=== PATIENT | female | born 1955 | race Hispanic/Latino ===

== ENCOUNTER 2020-10-03 12:27 | Emergency (ER) | payer OTHER, SELFPAY ==
--- OUTSIDE RECORDS SUMMARY | 2020-10-03 12:31 | XMS REPORT | Continuity of Care Document ---
:1955 Author Organization [facility] t Address [address] [place] [address] Care Team Providers Name Role Phone Tucker Primary Care Physician SHAY Attending Clinician Unavailable Shay ROSA Attending Clinician Clair ROSA S Attending Clinician Marilee Ozuna DO Attending Clinician Only, Test Attending Clinician Unavailable Soraya ROSA Attending Clinician Lilly Bates RN Attending Clinician Unavailable Epic, Transmittal User Attending Clinician Unavailable Talia Vasquez RN Attending Clinician Unavailable Payers Payer Name Policy Policy Number Effective Expiration Source Type Date Date [facility] [id number] 2020 [facility] [id number] 00:00:00 UNSCREENED2020- [phone] [address] [place] [address] [facility] [id number] 2018 Un iversity of [employer] 00:00:00 [facility] [id number], [place] [address] [id number] 2019 [employer] 00:00:00 Advance Directives Directive Decision Effective Termination Comments Source Date Date Healthcare Agents on N/A Univ ersity FileNameRelationshipHealthcare [facility] Agent Medical RelationshipCommunicationVeronica Branch [facility] Care [phone] (Home)Presakilsusan Funkana rosajonesSumma Health Care [phone] (Home)Jennifer VenturaSumma Health Care [phone] (Home) Problems Condition Condition Condition Status Onset Resolution Last Treating Co mments Source Name Details Category Date Date Treatment Clinician Date Ductal Ductal Disease Active Overview: Univer s carcinoma carcinoma 08 Added ity of in situ in situ 00:00: automatic [place] (DCIS) of (DCIS) of 00 ally from M edical left left request Branch breast breast for surgery [id number] Pre-diabet Pre-diabet Disease Active 2017-03 H arris es es 04-13 Health 00:00: 00 Anxiety Anxiety Disease Active 2017-03 [place] 04-13 Health 00:00: 00 Other Other Disease Active 2017-03 [place] hemorrhoid hemorrhoid 04-13 He alth s s 00:00: 00 Seasonal Seasonal Disease Active 2017-03 Harri s allergies allergies 04-13 Heal th 00:00: 00 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 [place] (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 00:00: elial elial 00 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 Class 2 Class 2 Disease Active 2017-03 [place] obesity in obesity in 04-13 He alth adult adult 00:00: 00 Bilateral Bilateral Disease Active 2017-03 [place] ris primary primary 04-13 Health osteoarthr osteoarthr 00:00: itis of itis of 00 knee knee Essential Essential Disease Active 2017-03 [place] ris hypertensi hypertensi 04-13 He alth on on 00:00: 00 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 UTI UTI Disease Active Univers symptoms symptoms 3-30 ity of 00:00: [place] [facility] Morbid Morbid Disease Active Univers obesity obesity 8-20 ity of 00:00: [place] 00 [facility] HTN HTN Disease Active Univers (hypertens (hypertens it y of ion) ion) [facility] Generalize Generalize Disease Active U nivers d anxiety d anxiety ity of disorder disorder [facility] Well woman Well woman Disease Resolve 2019-04-22 2019-04-23 Univers exam exam d 4-03 00:00:00 04:06:26 ity of 00:00: [place] [facility] H/O tubal H/O tubal Disease Resolve [id number] 2019-04-23 Univers ligation ligation d 0-10 00:00:00 04:06:12 it y of 00:00: [place] [facility] Contracept Contracept Disease Resolve 2019-04-22 2019-04-23 Univers serjio serjio d 8-20 00:00:00 04:06:17 ity of management management [place] 00 [facility] H/O total H/O total Disease Resolve 2019-04-22 2019-04-23 Univers hysterecto hysterecto d 8- 00:00:00 04:06:09 ity of my my 00:00: [place] 00 [facility] ASCUS with ASCUS with Disease Resolve 2017-07-20 2017-07-20 Univers positive positive d 5-11 00:00:00 17:19:15 it y of high risk high risk 00:00: [place] human human 00 Medical papillomav papillomav Br anch irus of irus of vagina vagina Cervical Cervical Disease Resolve 2017-07-20 2017-07-20 Univers high risk high risk d 1-17 00:00:00 17:19:21 ity of human human 00:00: [place] papillomav papillomav 00 Me dical irus (HPV) irus (HPV) Br anch DNA test DNA test positive positive Backache Backache Disease Resolve 2016-06-19 2016-06-19 Univers d 8-20 00:00:00 16:26:45 ity of 00:00: [place] 00 Medical Branch History of History of Disease Resolve 2015-07-09 2015-07-10 Univers hysterecto hysterecto d 07-08 00:00:00 00:26:52 ity of my my 00:00: [place] 00 Medical Branch Essential Essential Disease Resolve 2014-11-05 2014-12-19 Univers hypertensi hypertensi d 11-05 00:00:00 00:38:47 ity of on on 00:00: [place] 00 Medical Branch Urinary Urinary Disease Resolve 2014-11-05 2014-11-06 Univers tract tract d 09-02 00:00:00 03:51:30 ity of infection, infection, 00:[place] site not site not 00 Medica l specified specified Bran ch BV BV Disease Resolve 2014-11-05 2014-11-06 Univers (bacterial (bacterial d 09-02 00:00:00 03:51:34 ity of vaginosis) vaginosis[place] H/O: H/O: Disease Resolve 2014-11-05 2014-11-06 Univers hysterecto hysterecto d 07-08 00:00:00 03:52:46 ity of my my 00:00: [place] 00 Medical Branch Papanicola Papanicola Disease Resolve 2014-11-05 2014-11-06 Univers ou smear ou smear d 07-08 00:00:00 03:51:37 it y of of vagina of vagina 00:00: [place] with high with high 00 Medi myriam 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) (HGSIL) Dysuria Dysuria Disease Resolve 2014-11-05 2014-11-06 Univers d 04-04 00:00:00 03:51:33 ity of 00:00: [place] 00 Medical Branch Hx of Hx of Disease Resolve 2014-11-05 2014-11-06 Univers bilateral bilateral d 04-04 00:00:00 03:51:48 ity of oophorecto oophorecto [place] 00 Medical Branch Vaginal Vaginal Disease Resolve 2014-11-05 2014-11-06 Univers dryness dryness d 04-04 00:00:00 03:51:27 ity of 00:00: [place] 00 Medical Branch Encounter Encounter Disease Resolve 2014-07-08 2014-12-19 Univers for for d 04-04 00:00:00 00:03:47 ity of routine routine 00:00: [place] gynecologi gynecologi 00 Me dical myriam myriam Branch examinatio examinatio n n H/O: H/O: Disease Resolve 2013-05-28 2013-05-28 Univers hysterecto hysterecto d 04-04 00:00:00 20:51:23 ity of my my 00:00: [place] 00 Medical Branch HSIL (high HSIL (high Disease Active 2013-04-04 2013-04-04 Overview: Univers grade grade 8- 00:00:00 18:13:13 Hysterect ity of squamous squamous 00:00: toño for [place] intraepith intraepith 00 BRONSON 3Has Medical elial elict long Branch lesion) on lesion) on history Pap smear Pap smear of of cervix of cervix abnormal paps since then- Has been very compliant with follow up and vaginal biopsies. 06/19/2017- HGSIL07/20- colpo FLANK PAIN FLANK PAIN Disease Resolve 2013-04-04 2013-04-04 Univers d 11-03 00:00:00 18:13:15 ity of 00:00: [place] 00 Medical Branch Allergies, Adverse Reactions, Alerts Allergy Allergy Status Severity Reaction(s) Onset Inactive Treating Comm ents Source Name Type Date Date Clinician Xochitl Sanensi Active Anxiety Unive rs e ty to 3-05 ity of adverse 00:00: [place] reaction 00 Medical s Branch Aspirin Propensi Active [place] ty to 9-10 Health adverse 00:00: reaction 00 s to drug Hydrocor Propensi Active [place] tisone ty to 9-10 Health adverse 00:00: reaction 00 s to drug Aspirin Propensi Active Other - See 2010-03 Pt states Univers ty to comments - her heart ity o f adverse 00:00: races [place] reaction 00 fast.Rapi Medic al s d Branch heartbeat Caffeine Propensi Active Other - See 2010-03 Pt state s Univers ty to comments 1-08 nervousne ity o f adverse 00:00: ss and [place] reaction 00 her heart Medic al s races"pal Branch pitation" Family History Family Member Diagnosis Comments Start Date Stop Date Source Natural brother Diabetes [facility] alth Natural brother Hypertension [facility] Natural father [facility] Hy[facility] [place] [facility] Natural mother Arthritis [facility] Natural mother Hypertension [facility] Natural sister Diabetes [facility] Natural sister Hypertension [facility] Social History Social Habit Start Date Stop Date Quantity Comments Source Sex Assigned At [facility] Exposure to Not sure [facility] SARS-CoV-2 (event) Tobacco use and 2019-05-06 2019-05-06 Never used [facility] alth exposure 00:00:00 00:00:00 Alcohol intake 2019-05-06 2019-05-06 Current [facility] 00:00:00 00:00:00 non-drinker of alcohol (finding) History [facility] Food 2018-07-09 2018-07-09 1 [facility] Worry 00:00:00 00:00:00 History [facility] Food 2018-07-09 2018-07-09 1 [facility] Scarcity 00:00:00 00:00:00 Smoking Status Start Date Stop Date Source Never smoker [facility] Medications Ordered Filled Start Stop Current Ordering Indication Dosage Frequency Signature Comments Components Source Medication Medication Date Date Medication? 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 sertraline Yes Agoraphobia 100mg QD Take 1 [facility] (ZOLOFT) 7-12 with panic tablet by Health 100 mg 00:00: disorder mouth tablet 00 daily. busPIRone 2020- No Agoraphobia 10mg Take 1 [facility] ([facility]) 10 6- 07-12 with panic tablet by Health mg tablet 00:00: 00:00 disorder mouth 3 00 :00 times daily. sertraline 2020- No Agoraphobia 100mg QD Take 1 [place] (ZOLOFT) 6 07-12 with panic tablet by Health 100 mg 00:00: 00:00 disorder mouth tablet 00 :00 daily. FLUTICASONE Yes 1{spray Use 1 Un octavio PROPIONATE 4-15 } [place] in ity o f (FLUTICASON 21:31: each [place] E NASAL) 25 nostril 2 Medica l (two) Branch times daily. famotidine Yes 40mg Take 40 mg U nivers (PEPCID) 20 4-15 by mouth ity of mg tablet 21:31: daily. [address] meclizine Yes 32mg Take 32 mg Un octavio (ANTIVERT) 4-15 by mouth 3 ity of 25 mg 21:31: (three) [place] tablet 25 times Medical daily as Branch needed. losartan Yes 25mg Take 25 mg Uni vers (COZAAR) 25 4-15 by mouth ity of mg tablet 21:31: daily. [address] LORATADINE/ Yes Take by Un octavio PSEUDOEPHED 4-15 mouth as ity of RINE 21:31: needed. [place] (CLARITIN-D 25 [facility] 24 HOUR Branch ORAL) multivitami Yes 1{tbl} Take 1 Tab Univers n tablet 4-15 by mouth ity of 21:31: daily. [address] atenolol 50 Yes 50mg Take 50 mg Univers mg tablet 4-15 by mouth ity of 21:31: daily. [address] busPIRone Yes 10mg Take 10 mg Un octavio 10 mg 4-15 by mouth 2 ity of tablet 21:31: (two) [place] 25 times Medical daily. Branch flaxseed Yes Take by Unive rs oil (OMEGA 4-15 mouth. ity of 3 ORAL) 21:31: [address] pantoprazol Yes 40mg Take 40 mg Univers e 40 mg EC 4-15 by mouth ity o f tablet 21:31: daily. [address] montelukast Yes 10mg Take 10 mg Univers (SINGULAIR) 4-15 by mouth. ity of 10 mg 21:31: [place] [address] meloxicam Yes 7.5mg Take 7.5 Uni vers 7.5 mg 4-15 mg by ity of tablet 21:31: mouth [place] 25 daily. Medical Branch Cholecalcif Yes 1{capsu Take 1 U nivers sly, 4-15 le} capsule by ity of Vitamin D3, 21:31: mouth. [place] 50 mcg 25 Medical (2,000 Branch unit) capsule vitamin C Yes 250mg Take 250 Uni vers with genoveva 4-15 mg by ity of hips 21:31: mouth [place] (VITAMIN C) 25 daily. Medica l 250 mg Branch tablet acetaminoph Yes Ductal 1000mg Take 2 Univers en 500 mg 4-15 carcinoma tablets by ity of tablet 00:00: in situ mouth [place] 00 (DCIS) of every 6 Medical left breast (six) Branch hours. SERTraline Yes 100mg Take 100 Un octavio 100 mg 3-05 mg by ity of tablet 00:00: mouth. [place] 00 Medical Branch busPIRone 2020- No Agoraphobia 10mg Take 1 [place] (BUSPAR) 10 05-21 with panic tablet by Health mg tablet 00:00: 00:00 disorder mouth 3 00 :00 times daily. sertraline 2020- No Agoraphobia 100mg QD Take 1 [place] (ZOLOFT) 05-21 with panic tablet by Health 100 mg 00:00: 00:00 disorder mouth tablet 00 :00 daily. sertraline 2020- No Agoraphobia 100mg QD Take 1 [place] (ZOLOFT) 03-23 with panic tablet by Health 100 mg 00:00: 00:00 disorder mouth tablet 00 :00 daily. busPIRone 2020- No Agoraphobia 10mg Take 1 [place] (BUSPAR) 10 03-23 with panic tablet by Health mg tablet 00:00: 00:00 disorder mouth 3 00 :00 times daily. busPIRone 2019-03- No Agoraphobia 10mg Take 1 [place] (BUSPAR) 10 04-10 with panic tablet by Health mg tablet 00:00: 00:00 disorder mouth 3 00 :00 times daily. sertraline 2019-03- No Agoraphobia 100mg QD Take 1 [place] (ZOLOFT) 04-10 with panic tablet by Health 100 mg 00:00: 00:00 disorder mouth tablet 00 :00 daily. busPIRone 2019-03- No Agoraphobia 10mg Take 1 [place] (BUSPAR) 10 002-08 with panic tablet by Health mg tablet 00:00: 00:00 disorder mouth 3 00 :00 times daily. sertraline 2019-03- No Agoraphobia 100mg QD Take 1 [place] (ZOLOFT) 002-08 with panic tablet by Health 100 mg 00:00: 00:00 disorder mouth tablet 00 :00 daily. busPIRone 2019- No Agoraphobia 10mg Take 1 [place] (BUSPAR) 10 -01-11 with panic tablet by Health mg tablet 00:00: 00:00 disorder mouth 3 00 :00 times daily. sertraline 2019- No Agoraphobia 100mg QD Take 1 [place] (ZOLOFT) 801-11 with panic tablet by Health 100 mg 00:00: 00:00 disorder mouth tablet 00 :00 daily. busPIRone 2019- No Agoraphobia 10mg Take 1 [place] (BUSPAR) 10 09-22 with panic tablet by Health mg tablet 00:00: 00:00 disorder mouth 3 00 :00 times daily. sertraline 2019- No Agoraphobia 100mg QD Take 1 [place] (ZOLOFT) 09-22 with panic tablet by Health 100 mg 00:00: 00:00 disorder mouth tablet 00 :00 daily. clonazePAM Yes Agoraphobia .25mg Take 0.5 [place] (KLONOPIN) 9-17 with panic tablets by Health 0.5 mg 00:00: disorder mouth as tablet 00 needed for Anxiety. estradiol 2018- Yes Vaginal 1{tbl} Insert 1 Univers (IMVEXXY) 4 7-22 dryness tablet ity of mcg Inst 00:00: into [place] 00 vagina 2 Medical (two) Branch times per week for Other. albuterol 2018- Yes Moderate 2{puff} Inhale 2 Univers 90 4-28 persistent Puffs ity of mcg/actuati 00:00: asthma every 4 [place] on inhaler 00 without (four) Medi myriam complicatio hours as Bran ch n needed for Wheezing or Shortness of Breath. diclofenac 2018- Yes Cervical 50mg Take 1 U nivers 50 mg EC 4 spine tablet by ity o f tablet 00:00: arthritis mouth 3 [place] as 00 (three) Medical times Branch daily as needed for Pain (Print instructio ns in stateless). loratadine 2017-03 Yes 10mg QD Take 10 mg H arris (CLARITIN) 04-13 by mouth Healt h 10 mg 09:21: daily. tablet 29 MULTIVITAMI 2017-03 Yes 1{capsu QD Take 1 H arris NS capsule 04-13 le} capsule by a lt 09:21: mouth 29 daily. omega-3/dha 2017-03 Yes Take by [facility] ris /epa/dpa/fi 04-13 mouth. Health sh oil 09:21: (OMEGA-3 29 2100 OR) ergocalcife 2017-03 Yes Take by [facility] long rol, 04-13 mouth. Health vitamin D2, 09:21: (VITAMIN D 29 OR) ciclesonide 2017-03 Yes Seasonal 1{spray QD Use 1 [place] (ZETONNA) 04-13 allergies } [place] in H ealth 37 00:00: each mcg/actuati 00 nostril on nasal daily. HFA inhaler fexofenadin 2017-03 Yes Seasonal 180mg QD Take 1 [place] e (BERT 04-13 allergies tablet by [facility] ALLERGY) 00:00: mouth 180 mg 00 daily. tablet Meloxicam 2017-03 Yes Bilateral 7.5mg QD Take 1 [place] 7.5 mg 04-13 primary tablet by [facility] h tablet 00:00: osteoarthri mouth 00 tis of knee daily. hydrocortis 2017-03 Yes Hemorrhoids 1{appli Q.5D Insert 1 [place] one-pramoxi 04-13 , cator} Applicator Health ri 00:00: unspecified rectally 2 (PROCTOFOAM 00 hemorrhoid times -HC) 1-1 % type daily. rectal foam famotidine 2017-03 Yes Gastroesoph 40mg Take 1 [place] (PEPCID) 40 04-13 ageal tablet by alth mg tablet 00:00: reflux mouth 00 disease, nightly at esophagitis bedtime as presence needed for not Heartburn. specified imiquimod 5 Yes 1{packe Apply 1 Univers % cream 6-22 t} Each to ity of 00:00: area(s) [place] 00 every Medical Sunday, Branch Sunday and Titi. Immunizations Ordered Immunization Filled Immunization Date Status Commen ts Source Name Name SARS-COV-2 COVID-19 2020-05-13 Completed Unive rsity of PFIZER VACCINE 00:00:00 [facility] Pfizer Sars-cov-2 2020-04-05 Completed [facility] Vaccination 00:00:00 PPV 23 (Pneumococcal 2020-02-17 Completed [facility] Polysaccharide 23 00:00:00 Valent) Zoster Vaccine 2020-02-17 [facility] (Shing[facility]) 00:00:00 Influenza, 2019-11-18 Completed [facility] Vaccine<Flubok> 00:00:00 (Preservative Free) Influenza, 2018-12-04 Completed [facility] Vaccine<Flubok> 00:00:00 (Preservative Free) Tdap (Tetanus Toxoid, 2018-02-11 Completed [facility] Reduced Diphtheria 00:00:00 Toxoid And Acellular Pertussis, Absorbed) Influenza 2018-01-11 Completed [facility] <Unspecified> 00:00:00 TDAP 2014-06-04 Completed University 00:00:00 [facility] Tdap (Tetanus Toxoid, 2014-06-04 Completed [facility] Reduced Diphtheria 00:00:00 Toxoid And Acellular Pertussis, Absorbed) Td 2004-03-19 Completed University 00:00:00 [facility] Td <Unspecified> 2004-03-19 Completed [facility] ealth 00:00:00 Procedures Procedure Date / Time Performed Performing Clinician [facility] e COVID-19 (ID NOW 2020-07-23 15:48:00 Tian Lira [facility] RAPID TESTING) Medical [place] Plan of Care Planned Activity Planned Date Details Comments Source Future Scheduled 2024-06-04 DTaP,Tdap,and Td Univers [facility] Test 00:00:00 Vaccines (2 - Td) [code [facility] Branch = DTaP,Tdap,and Td Vaccines (2 - Td)] Future Scheduled 2021-07-01 Depression screening Uni [facility] Test 00:00:00 (procedure) [code = Medical Branch 868913577] Future Scheduled 2021-06-01 Screening for malignant [facility] Test 00:00:00 neoplasm of breast Medical B ranch (procedure) [code = 069845856] Future Scheduled 2021-05-03 Screening for malignant [facility] Test 00:00:00 neoplasm of cervix Medical B [facility] (procedure) [code = 613784068] Future Scheduled 2020-12-17 IMM Influenza Seasonal H arr[facility] Health Test 00:00:00 Dec to May (>/= 19 yrs) [code = IMM Influenza Seasonal Dec to May (>/= 19 yrs)] Future Scheduled 2020-11-17 INFLUENZA VACCINE Univer [facility] Test 00:00:00 (Season Ended) [code = Medic al Branch INFLUENZA VACCINE (Season Ended)] Future Scheduled 2019-02-11 Breast Cancer Scrn [facility] Test 00:00:00 (Yearly) [code = Breast Cancer Scrn (Yearly)] Future Scheduled 2018-09-11 Screening for malignant [place] [facility] Test 00:00:00 neoplasm of colon (procedure) [code = 701596534] Future Scheduled 2006 Screening for occult Uni [facility] Test 00:00:00 blood in feces Medical Bran h (procedure) [code = 154350449] Future Scheduled 2006 Stool DNA-based [facility] Test 00:00:00 colorectal cancer Medical Br anch screening (procedure) [code = 969812989847845] Future Scheduled 2006 Flexible fiberoptic [facility] Test 00:00:00 sigmoidoscopy Medical Branch (procedure) [code = 52635338] Future Scheduled 2006 Screening for malignant [facility] Test 00:00:00 neoplasm of colon Medical Br anch (procedure) [code = 291987233] Future Scheduled 2006 Screening for malignant [facility] Test 00:00:00 neoplasm of colon Medical Br anch (procedure) [code = 690149545] Future Scheduled 2006 Zoster Recombinant [facility] [place] [facility] Test 00:00:00 Vaccine (SHINGRIX) (1 Medica l Branch of 2) [code = Zoster Recombinant Vaccine (SHINGRIX) (1 of 2)] Future Scheduled 1986 Screening for malignant [place] [facility] Test 00:00:00 neoplasm of cervix (procedure) [code = 254675996] Future Scheduled 1986 Screening for malignant [place] [facility] Test 00:00:00 neoplasm of cervix (procedure) [code = 310239468] Future [facility]uled [facility] INTERPRETATION [code = Medic al Branch 94303] Encounters Start End Encounter Admission Attending Care Care Encounter Source Date/Time Date/Time Type Type Clinicians Facility Department ID 2020-12-06 2020-12-06 Outpatient SHAY [facility] [id number] [place] 00:00:00 00:00:00 ELIU Embrane 2020-09-27 2020-09-27 [facility] [id number] [place] 07:24:00 11:59:20 ELIU Embrane 2020-09-20 2020-09-20 Telephone SMITA Self [id number] 00:00:00 00:00:00 Natali Geiger [id number] [facility] [id number] [facility] 2020-09-14 2020-09-14 Office SMITA Ozuna [id number] 14:27:11 17:31:48 Visit Tayler Geiger [id number] [facility] [id number] 2020-01-12 2020-01-12 [facility] [id number] [place] 00:00:00 00:00:00 ELIU Embrane 2019-11-04 2019-11-04 [facility] [id number] [place] 06:50:48 09:21:56 ELIU Embrane 2019-09-23 2019-09-23 Outpatient [facility] [id number] [place] 06:36:43 06:36:43 Health 2019-07-01 2019-07-01 Outpatient [facility] [id number] [place] 07:10:41 07:10:41 Health 2019-07-01 2019-07-01 Outpatient [facility] [id number] [place] 00:00:00 00:00:[address] [facility] 2019-05-06 2019-05-06 Outpatient [facility] [id number] [place] 08:43:25 08:43:25 Health 2019-03-10 2019-03-10 Outpatient [facility] [id number] [place] 09:12:02 09:12:02 Health 2019-02-03 2019-02-03 Outpatient [facility] [id number] [place] 00:00:00 00:00:[address] [facility] 2018-12-03 2018-12-03 Outpatient [facility] [id number] [place] 09:29:55 09:29:55 Health Results Test Description Test Time Test Comments Results Result Comments Source COVID-19 (ID NOW RAPID TESTING) 2020-07-23 16:15:22 Test Item Value Reference Range Interpretation Comme nts SARS-CoV-2 Rapid ID NOW (test code Positive Not Detected A = 03441-9) TIM (test code = TIM) ID NOW COVID-19 Assay is an isothermal nucleic acid amplification test intended for the qualitative detection of nucleic acid from SARS-CoV-2 viral RNA in nasopharyngeal (CASUAL SHOE INSPECTOR) specimens. It is used under Emergency Use Authorization (EUA) by FDA. The limit of detection (LOD) of the assay is 125 Genome Equivalents/mL. A positive result is indicative of the presence of SARS-CoV-2 RNA. Clinical correlation with patient history and other diagnostic information is necessary to determine patient infection status. A negative (Not Detected) result does not preclude SARS-CoV-2 infection. In patients with clinical symptoms and other tests that are consistent with SARS-CoV-2 infection, negative results should be treated as presumptive negative and a new specimen should be tested with alternative PCR molecular test. Invalid: Please collect a new specimen for repeat patient testing if clinically indicated. Lab Interpretation (test code = Abnormal 35714-8) [facility]
[2020-10-03 13:12] LABS: Absolute Lymphocytes (CBC) 1.4 K/uL (0.7-4.9); Basophils % 0.7 % (0-1.3); Hematocrit 41.7 % (36.0-45.0); Lymphocytes % 23.7 % (15.3-44.8); MPV 7.6 fL (7.6-11.3); RBC Red Blood Cell Count 4.56 M/uL (3.86-4.86)
[2020-10-03 13:28] LABS: BUN Blood Urea Nitrogen 12 mg/dL (7-18); Bicarbonate 27 mmol/L (21-32); Glucose Level 107 mg/dL (74-106); Potassium 4.3 mmol/L (3.5-5.1); Sodium Level 140 mmol/L (136-145)
--- NOTE | 2020-10-03 13:29 | RAD REPORT ---
EXAM DESCRIPTION: RAD - Humerus Left - 10/03/2020 1:01 pm CLINICAL HISTORY: PAIN COMPARISON: No comparisons FINDINGS: No acute fracture or dislocation.
--- NOTE | 2020-10-03 13:30 | RAD REPORT ---
EXAM DESCRIPTION: RAD - Forearm Left - 10/03/2020 1:01 pm CLINICAL HISTORY: PAIN COMPARISON: No comparisons FINDINGS: Radiocarpal osteoarthritis is present. No acute fracture seen. No dislocation evident.
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
[2020-10-03] MEDS ORDERED: ONDANSETRON 4 MG/2 ML VIAL ONE (14:30)
[2020-10-03 14:46] VITALS: TEMP 98.2
[2020-10-03 14:52] VITALS: BP 142/88; O2SAT 100
== END 2020-10-03 14:19 | disposition home or self-care (01) ==
LOC: ER 12:27
DX: S09.90XA Unspecified injury of head, initial encounter (principal); S50.12XA Contusion of left forearm, initial encounter; S40.022A Contusion of left upper arm, initial encounter; V03.00XA Pedestrian on foot injured in collision with car, pick-up truck or van in nontraffic accident, initial encounter; Y92.481 Parking lot as the place of occurrence of the external cause; I10 Essential (primary) hypertension; Z85.3 Personal history of malignant neoplasm of breast; Z88.6 Allergy status to analgesic agent
CPT/HCPCS: 36415; 70450; 71260; 72125; 74177; 80048; 82565; 85025; 96374; 99284; J2405; Q9967

== ENCOUNTER 2020-10-06 07:31 | Emergency (ER) | payer SELFPAY ==
--- OUTSIDE RECORDS SUMMARY | 2020-10-06 07:34 | XMS REPORT | Continuity of Care Document ---
:1955 Author Organization [facility] t Address [address] [place] [address] Care Team Providers Name Role Phone Tucker [...] Number Effective Expiration Source Type Date Date [facility] [id number] 2020 [facility] ELOD-[id number]-TIO 00:00:00 UNSCREENED2020- [phone] [address] [place] [address] FORMERLY [facility] [id number] 2018 Un iversity of [employer] 00:00:00 [facility] [id number], [place] [address] [id number] 2019 [employer] 00:00:00 Advance Directives Directive Decision Effective Termination Comments Source Date Date Healthcare Agents on N/A Univ ersity FileNameRelationshipHealthcare [facility] Agent Medical RelationshipCommunicationVeronica Branch [facility] Care [phone] (Home)Presakilsusan Funkana rosajonesAv[facility] Health System Care [phone] (Home)Jennifer VenturaAv[facility] Health [facility] Care [phone] (Home) Problems Condition Condition Condition Status Onset Resolution Last Treating Co mments Source Name Details Category Date Date Treatment Clinician Date Ductal Ductal Disease Active Overview: Univer s carcinoma carcinoma 08 Added ity of in situ in situ 00:00: automatic [place] (DCIS) of (DCIS) of 00 ally from M edical left left request Branch breast breast for surgery [id number] Pre-diabet Pre-diabet Disease Active 2017-03 H arris [...] nch grade III) grade III) for surgery [id number] Allergic Allergic Disease Active Unive rs reaction reaction 3-30 ity of 00:00: [place] [facility] UTI UTI Disease Active Univers symptoms symptoms 3-30 ity of 00:00: [place] [facility] Morbid Morbid Disease Active Univers obesity obesity 8-20 ity of 00:00: [place] 00 [facility] HTN HTN Disease Active Univers (hypertens (hypertens it y of ion) ion) [facility] Generalize Generalize Disease Active U nivers d anxiety d anxiety ity of disorder disorder [facility] Well woman Well woman Disease Resolve 2019-04-22 2019-04-23 Univers exam exam d 4-03 00:00:00 04:06:26 ity of 00:00: [place] [facility] H/O tubal H/O tubal Disease Resolve [id number] 2019-04-23 Univers ligation ligation d 0-10 00:00:00 04:06:12 it y of 00:00: [place] [facility] Contracept Contracept Disease Resolve 2019-04-22 2019-04-23 Univers serjio serjio d 8-20 00:00:00 04:06:17 [place] management [place] [facility] H/O total H/O total Disease Resolve 2019-04-22 2019-04-23 Univers hysterecto hysterecto d 8- 00:00:00 04:06:09 ity of my my 00:00: [place] 00 [facility] ASCUS with ASCUS with Disease Resolve 2017-07-20 [...] ity of squamous squamous 00:00: toño for [place] intraepith intraepith 00 BRONSON 3Has Medical elial elior long Branch lesion) on lesion) on history [...] Date Stop Date Source Natural brother Diabetes [facility] alth Natural brother Hypertension [facility] Hy[facility] [place] [facility] Natural mother Arthritis [facility] Natural mother [facility]pertension [facility] [facility] Natural sister Diabetes [facility] Natural sister Hypertension [place] [facility] Social History Social Habit Start Date Stop Date Quantity Comments Source Sex Assigned [facility] Exposure to Not sure [facility] SARS-CoV-2 (event) Tobacco use and 2019-05-06 2019-05-06 Never used [facility] alth exposure 00:00:00 00:00:00 Alcohol intake 2019-05-06 2019-05-06 Current [facility] 00:00:00 00:00:00 non-drinker of alcohol (finding) History [facility] Food 2018-07-09 2018-07-09 1 [facility] Worry 00:00:00 00:00:00 History [facility] Food 2018-07-09 2018-07-09 1 [facility] Scarcity 00:00:00 00:00:00 Smoking Status Start Date Stop Date Source Never smoker [facility] Medications Ordered Filled Start Stop Current Ordering Indication Dosage Frequency Signature Comments Components Source Medication Medication Date Date Medication? Clinician (SIG) Name Name busPIRone Yes Agoraphobia 10mg Take 1 [employer]LA (BUSPAR) 10 7-12 with panic tablet by Health mg tablet 00:00: disorder mouth 3 00 times daily. sertraline Yes Agoraphobia 100mg QD Take 1 [employer] (ZOLOFT) 7-12 with panic tablet by Health 100 mg 00:00: disorder mouth tablet 00 daily. busPIRone 2020- No Agoraphobia 10mg Take 1 [employer]plify[employer]LA (BUSPAR) 10 6- 07-12 with panic tablet by Health mg tablet 00:00: 00:00 disorder mouth 3 00 :00 times daily. sertraline 2020- No Agoraphobia 100mg QD Take 1 [place] (ZOLOFT) 6 07-12 with panic tablet by Health 100 mg 00:00: 00:00 disorder mouth tablet 00 :00 daily. FLUTICASONE Yes 1{spray Use 1 Un octavio PROPIONATE 4-15 } [place] in ity o f (FLUTICASON 21:31: each [place] E NASAL) 25 nostril 2 Medica l (two) Branch times daily. famotidine Yes 40mg Take 40 mg U nivers (PEPCID) 20 4-15 by mouth ity of mg tablet 21:31: daily. [address] meclizine Yes 32mg Take 32 mg Un octavio (ANTIVERT) 4-15 by mouth 3 ity of 25 mg 21:31: (three) [place] tablet 25 times Medical daily as Branch needed. losartan Yes 25mg Take 25 mg Uni vers (COZAAR) 25 4-15 by mouth ity of mg tablet 21:31: daily. [address] LORATADINE/ Yes Take by Un octavio PSEUDOEPHED 4-15 mouth as ity of RINE 21:31: needed. [place] (CLARITIN-D 25 [facility] 24 HOUR Branch ORAL) multivitami Yes 1{tbl} Take 1 Tab Univers n tablet 4-15 by mouth ity of 21:31: daily. [address] atenolol 50 Yes 50mg Take 50 mg Univers mg tablet 4-15 by mouth ity of 21:31: daily. [address] busPIRone Yes 10mg Take 10 mg Un octavio 10 mg 4-15 by mouth 2 ity of tablet 21:31: (two) [place] 25 times Medical daily. Branch flaxseed Yes Take by Unive rs oil (OMEGA 4-15 mouth. ity of 3 ORAL) 21:31: [address] pantoprazol Yes 40mg Take 40 mg Univers e 40 mg EC 4-15 by mouth ity o f tablet 21:31: daily. [address] montelukast Yes 10mg Take 10 mg Univers (SINGULAIR) 4-15 by mouth. ity of 10 mg 21:31: [place] [address] meloxicam Yes 7.5mg Take 7.5 Uni [...] mg by ity of tablet 00:00: mouth. [place] 00 Medical Branch busPIRone 2020- No Agoraphobia [...] needed for Pain (Print instructio ns in frisian). loratadine 2017-03 Yes 10mg QD Take 10 mg H arris (CLARITIN) 04-13 by mouth Healt h 10 mg 09:21: daily. tablet 29 MULTIVITAMI 2017-03 Yes 1{capsu QD Take 1 H arris NS capsule 04-13 le} capsule by a lt 09:21: mouth 29 daily. omega-3/dha 2017-03 Yes Take by [facility] ris /epa/dpa/fi 04-13 mouth. Health sh oil 09:21: (OMEGA-3 29 2100 OR) ergocalcife 2017-03 Yes Take by [facility] long rol, 04-13 mouth. Health vitamin D2, 09:21: (VITAMIN D 29 OR) ciclesonide 2017-03 Yes Seasonal 1{spray QD Use 1 [place] (ZETONNA) 04-13 allergies } [place] in H ealth 37 00:00: each mcg/actuati 00 nostril on nasal daily. HFA inhaler fexofenadin 2017-03 Yes Seasonal 180mg QD Take 1 [place] e (BERT 04-13 allergies tablet by [facility] ALLERGY) 00:00: mouth 180 mg 00 daily. tablet Meloxicam 2017-03 Yes Bilateral 7.5mg QD Take 1 [place] 7.5 mg 04-13 primary tablet by [facility] h tablet 00:00: osteoarthri mouth 00 tis of knee daily. hydrocortis 2017-03 Yes Hemorrhoids 1{appli Q.5D Insert 1 [place] one-pramoxi 04-13 , cator} [facility] nh 00:00: unspecified rectally 2 (PROCTOFOAM 00 hemorrhoid [...] t} Each to ity of 00:00: area(s) [place] 00 every Medical Sunday, Branch Sunday and Titi. Immunizations Ordered Immunization Filled Immunization Date Status Commen ts Source Name Name SARS-COV-2 COVID-19 2020-05-13 Completed Unive rsity of PFIZER VACCINE 00:00:00 [facility] Pfizer Sars-cov-2 2020-04-05 Completed [facility] Vaccination 00:00:00 PPV 23 (Pneumococcal 2020-02-17 Completed [facility] Polysaccharide 23 00:00:00 Valent) Zoster Vaccine 2020-02-17 [facility] (Shingrix) 00:00:00 Influenza, 2019-11-18 Completed [facility] Vaccine<Flubok> 00:00:00 (Preservative Free) Influenza, 2018-12-04 Completed [facility] Vaccine<Flubok> 00:00:00 (Preservative Free) Tdap (Tetanus Toxoid, 2018-02-11 Completed [facility] Reduced Diphtheria 00:00:00 Toxoid And Acellular Pertussis, Absorbed) Influenza 2018-01-11 Completed [facility] <Unspecified> 00:00:00 TDAP 2014-06-04 Completed University 00:00:00 [facility] Tdap (Tetanus Toxoid, 2014-06-04 Completed [facility] Reduced Diphtheria 00:00:00 Toxoid And Acellular Pertussis, Absorbed) Td 2004-03-19 Completed University 00:00:00 [facility] Td <Unspecified> 2004-03-19 Completed [facility] ealth 00:00:00 Procedures Procedure Date / Time Performed Performing Clinician [facility] e COVID-19 (ID NOW 2020-07-23 15:48:00 [facility] RAPID TESTING) Medical [place] Plan of Care Planned Activity Planned Date Details Comments Source Future Scheduled 2024-06-04 DTaP,Tdap,and Td Univers [facility] Test 00:00:00 Vaccines (2 - Td) [code [facility] Branch = DTaP,Tdap,and Td Vaccines (2 - Td)] Future Scheduled 2021-07-01 Depression screening Uni [facility] Test 00:00:00 (procedure) [code = Medical Branch 462641674] Future Scheduled 2021-06-01 Screening for malignant [facility] Test 00:00:00 neoplasm of breast Medical [facility] (procedure) [code = 937368514] Future Scheduled 2021-05-03 Screening for malignant [facility] Test 00:00:00 neoplasm of cervix Medical [facility] (procedure) [code = 548338433] Future Scheduled 2020-12-17 IMM Influenza Seasonal H [facility] Health Test 00:00:00 Dec to May (>/= 19 yrs) [code = IMM Influenza Seasonal Dec to May (>/= 19 yrs)] Future Scheduled 2020-11-17 INFLUENZA VACCINE Univer [facility] Test 00:00:00 (Season Ended) [code = Medic al Branch INFLUENZA VACCINE (Season Ended)] Future Scheduled 2019-02-11 Breast Cancer [facility] Test 00:00:00 (Yearly) [code = Breast Cancer Scrn (Yearly)] Future Scheduled 2018-09-11 Screening for malignant [facility] Test 00:00:00 neoplasm of colon (procedure) [code = 109413005] Future Scheduled 2006 Screening for occult Uni [facility] Test 00:00:00 blood in feces Medical Bran h (procedure) [code = 814788337] Future Scheduled 2006 Stool DNA-based [facility] Test 00:00:00 colorectal cancer Medical Br anch screening (procedure) [code = 068190536562857] Future Scheduled 2006 Flexible fiberoptic [facility] Test 00:00:00 sigmoidoscopy Medical Branch (procedure) [code = 55300490] Future Scheduled 2006 Screening for malignant [facility] Test 00:00:00 neoplasm of colon Medical Br anch (procedure) [code = 398597312] Future Scheduled 2006 Screening for malignant [facility] Test 00:00:00 neoplasm of colon Medical Br anch (procedure) [code = 026923916] Future Scheduled 2006 Zoster Recombinant [facility] Test 00:00:00 Vaccine (SHINGRIX) (1 Medica l Branch of 2) [code = Zoster Recombinant Vaccine (SHINGRIX) (1 of 2)] Future Scheduled 1986 Screening for malignant [facility] Test 00:00:00 neoplasm of cervix (procedure) [code = 827895972] Future Scheduled 1986 Screening for malignant [facility] Test 00:00:00 neoplasm of cervix (procedure) [code = 303501746] Future Scheduled [facility] INTERPRETATION [code = Medic al Branch 77571] Encounters Start End Encounter Admission Attending Care Care Encounter Source Date/Time Date/Time Type Type Clinicians Facility Department ID 2020-12-06 2020-12-06 Outpatient SHAY [facility] [id number] [place] 00:00:00 00:00:00 [facility] 2020-09-27 2020-09-27 [facility] [id number] [place] 07:24:00 11:59:20 [facility] [employer] 2020-09-20 2020-09-20 Telephone SMITA Self [id number] 00:00:00 00:00:00 Natali Geiger [id number] [facility] [id number] [facility] 2020-09-14 2020-09-14 Office SMITA Ozuna [id number] 14:27:11 17:31:48 Visit Tayler Geiger [id number] [facility] [id number] 2020-01-12 2020-01-12 [facility] [id number] [place] 00:00:00 00:00:00 [facility] [employer] 2019-11-04 2019-11-04 [facility] [id number] [place] 06:50:48 09:21:56 [facility] [employer] 2019-09-23 2019-09-23 Outpatient [facility] [id number] [place] 06:36:43 06:36:43 Health 2019-07-01 2019-07-01 Outpatient [facility] [id number] [place] 07:10:41 07:10:41 Health 2019-07-01 2019-07-01 Outpatient [facility] [id number] [place] 00:00:00 00:00:00 [facility] 2019-05-06 2019-05-06 Outpatient [facility] [id number] [place] 08:43:25 08:43:25 Health 2019-03-10 2019-03-10 Outpatient [facility] [id number] [place] 09:12:02 09:12:02 Health 2019-02-03 2019-02-03 Outpatient [facility] [id number] [place] 00:00:00 00:00:00 [facility] 2018-12-03 2018-12-03 Outpatient [facility] [id number] [place] 09:29:55 09:29:55 Health Results Test Description Test Time Test Comments Results Result Comments Source COVID-19 (ID NOW RAPID TESTING) 2020-07-23 16:15:22 Test Item Value Reference Range Interpretation Comme nts SARS-CoV-2 Rapid ID NOW (test code Positive Not Detected A = 65149-7) TIM (test code = TIM) ID NOW COVID-19 Assay is an isothermal nucleic acid amplification test intended for the qualitative detection of nucleic acid from SARS-CoV-2 viral RNA in nasopharyngeal (EXPERIENCED TRUCK DRIVER) specimens. It is used under Emergency Use [...] indicated. Lab Interpretation (test code = Abnormal 39828-2) [facility]
--- NOTE | 2020-10-06 09:35 | RAD REPORT ---
EXAM DESCRIPTION: RAD - Foot Right 3 View - 10/06/2020 8:42 am CLINICAL HISTORY: Right foot pain FINDINGS: No fracture or dislocation is seen. A 7 millimeter lucency within the anterior calcaneus probably benign. Follow-up x-ray 3 months is rec ommended to assess stability. Mild hallux valgus deformity
--- NOTE | 2020-10-06 09:39 | RAD REPORT ---
EXAM DESCRIPTION: RAD - Ankle Right 3 View - 10/06/2020 8:42 am CLINICAL HISTORY: Right ankle pain FINDINGS: No fracture or dislocation is seen. Calcification near the insertion of the Achilles tendon with the calcaneus likely enthesophyte Vague 9 millimeter lucency within the distal tibia does not reach the articulating surface. It probab ly is not significant. Follow-up x-ray in 3 months recommended for re-evaluation
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
--- NOTE | 2020-10-06 10:08 | EDPHYS ---
Physician Documentation [facility] Name: Jayne Spence Age: 65 yrs Sex: Female : 1955 Arrival Date: 10/06/2020 Time: 07:33 Bed 15 Private MD: Germain Ceballso ED Physician Go Duran HPI: 10/06 07:46 This 65 yrs old Female presents to ER via Unassigned with complaints of Leg jmm Pain. 07:46 The patient presents with an injury, pain, that is acute. Onset: The symptoms/episode jmm began/occurred acutely, 3 day(s) ago. Modifying factors: The symptoms are alleviated by nothing. the symptoms are aggravated by nothing. This is a 65 year old female with a history of anxiety, htn, that presents to the ED with complaints of right ankle pain which occurred after a fall which occurred this past Sunday. She was evaluated on Sunday in the ED. . Historical: - Allergies: 07:57 Aspirin; ll1 - PMHx: 07:57 Hypertension; left breast CA; ll1 - PSHx: 07:57 Total abdominal hysterectomy; ll1 - Immunization history:: Client reports having NOT received the Covid vaccine. - Social history:: Smoking status: Patient denies any tobacco usage or history of. ROS: 07:46 Constitutional: Negative for fever, chills, and weight loss, Cardiovascular: Negative jmm for chest pain, palpitations, and edema, Respiratory: Negative for shortness of breath, cough, wheezing, and pleuritic chest pain. 07:46 MS/extremity: Positive for pain. 07:46 All other systems are negative. Exam: 07:46 Constitutional: This is a well developed, well nourished patient who is awake, alert, jmm and in no acute distress. Head/Face: atraumatic. Eyes: EOMI, no conjunctival erythema appreciated ENT: Moist Mucus Membranes Neck: Trachea midline, Supple Chest/axilla: Normal chest wall appearance and motion. Cardiovascular: Regular rate and rhythm. No edema appreciated Respiratory: Normal respirations, no respiratory distress appreciated Abdomen/GI: Non distended, soft Back: Normal ROM Skin: General appearance color normal 07:46 Musculoskeletal/extremity: right ankle pain on palpation, compartments soft, full dorsalis pulse appreciated, no pain at the base of the fifth metatarsal appreciated. Neurovascular intact. 07:46 Skin: Appearance: Color: normal in color. Vital Signs: 08:00 BP 107 / 54; Pulse 72; Resp 18; Temp 97.8; Pulse Ox 97% on R/A; ph 10:25 BP 99 / 56; Pulse 70; Resp 16; Temp 98.0; Pulse Ox 99% on R/A; ph MDM: 07:46 Patient medically screened. [facility] 10:06 Data reviewed: vital signs, nurses notes. Counseling: I had a detailed discussion with [facility] the patient and/or guardian regarding: the historical points, exam findings, and any diagnostic results supporting the discharge/admit diagnosis, radiology results, the need for outpatient follow up, to return to the emergency department if symptoms worsen or persist or if there are any questions or concerns that arise at home. ED course: X-rays negative for fracture. Patient patient advised to follow with orthopedics for further evaluation. I did discuss x-ray findings along with the need for 3-month repeat. Patient understood and agrees plan of care.. 10/06 07:57 Order name: Ankle Right 3 View XRAY; Complete Time: 09:42 [facility] 10/06 07:57 Order name: Foot Right 3 View XRAY; Complete Time: 09:42 [facility] 10/06 09:58 Order name: Han wrap-joint; Complete Time: 10:19 [facility] Administered Medications: No medications were administered Disposition: 23:17 Co-signature as Attending Physician, Go Duran MD. rn Disposition Summary: 10/06/20 10:07 Discharge Ordered Location: Home [facility] Condition: Stable [facility] Diagnosis - Sprain of ankle [facility] Followup: [facility] - With: Virgil Hawkins MD - When: 2 - 3 days - Reason: Recheck today's complaints, Continuance of care, Re-evaluation by your physician Discharge Instructions: - Discharge Summary Sheet [facility] - Ankle Sprain [facility] Forms: - Medication Reconciliation Form [facility] - Thank You Letter [facility] - Antibiotic Education [facility] - Prescription Opioid Use [facility] Signatures: Dispatcher [employer] EDMS Candelario Sousa PA PA jmm Nieto, Roman, MD MD rn Hall, Patricia, RN RN Gucci Beckett RN RN ll1
[2020-10-06 10:34] VITALS: BP 99/56; TEMP 98; O2SAT 99
== END 2020-10-06 10:27 | disposition home or self-care (01) ==
LOC: ER 07:31
DX: S93.401A Sprain of unspecified ligament of right ankle, initial encounter (principal); W19.XXXA Unspecified fall, initial encounter; I10 Essential (primary) hypertension; Z88.6 Allergy status to analgesic agent; Z85.3 Personal history of malignant neoplasm of breast
CPT/HCPCS: 99283